=== PATIENT | female | born 1990 | race African-American/Black ===

== ENCOUNTER 2023-09-15 16:34 | Emergency (ER) | payer MEDICAID ==
[~2023-09-15] VITALS: Ht 157.5 cm; Wt 83.9 kg
[2023-09-15] MEDS ORDERED: CIPR7.5D9 EACH EAR (17:39)
[2023-09-15] MEDS ORDERED: HYDR-4303 PO (17:41)
[2023-09-15] MEDS ORDERED: HYDROCODONE/APAP 5/325MG TABLET ONE (17:51)
[2023-09-15 17:53] VITALS: BP 125/77; TEMP 99.5; O2SAT 99
[2023-09-15] MEDS ORDERED: HYDROCODONE/APAP 5/325MG TABLET PO ONE (18:00)
== END 2023-09-15 17:53 | disposition home or self-care (01) ==
LOC: ER 16:47
DX: H60.92 Unspecified otitis externa, left ear (principal); F31.9 Bipolar disorder, unspecified